=== PATIENT | male | born 1990 | race Two or more races ===

== ENCOUNTER 2017-08-18 04:19 | Emergency (ER) | payer SELFPAY ==
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
[2017-08-18] MEDS ORDERED: HALOPERIDOL LACTATE INJ 5 MG/1 ML VIAL ONE (04:42)
[2017-08-18] MEDS ORDERED: HALOPERIDOL LACTATE INJ 5 MG/1 ML VIAL IM ONE (04:42)
[2017-08-18] MEDS ORDERED: LORAZEPAM INJ 2 MG/1 ML VIAL IM ONE (04:42)
[2017-08-18] MEDS ORDERED: LORAZEPAM INJ 2 MG/1 ML VIAL ONE (04:43)
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
[2017-08-18 07:46] VITALS: BP 107/77
== END 2017-08-18 07:49 | disposition home or self-care (01) ==
LOC: ER 04:19
DX: S00.81XA Abrasion of other part of head, initial encounter (principal); R51 Headache; X58.XXXA Exposure to other specified factors, initial encounter; F17.200 Nicotine dependence, unspecified, uncomplicated
CPT/HCPCS: 99284; 96372; 70450; 70486; J1630; J2060